=== PATIENT | female | born 1940 | race Caucasian/White ===

== ENCOUNTER 2022-03-26 10:11 | Day surgery (SDC) | payer MEDICARE, SELFPAY ==
[2022-03-26 10:29] VITALS: BMI 24.3
[2022-03-26 10:47] LABS: COVID-19 Test Negative (Negative); IDNOW Serial# 16C4AD1C
[2022-03-26 10:52] VITALS: BP 135/75; PULSE 87; RESP 16; TEMP 36.7; O2SAT 96
--- NOTE | 2022-03-26 12:34 | MHC.SHP ---
Pre-Procedural Eval Section A Date of Service: 03/26/22 The patient is an INPATIENT: No Changes since office visit: No Cold of Flu in the past 2 weeks, No New Medical Problems, No Changes in Medication and No Patient answered all questions The History & Physical has been completed within 30 days and I have reviewed it.: Yes Section B Chief Complaint: Hemorrhage of anus and rectum Allergies: Allergies Allergy/AdvReac Type Severity Reaction Status Date / Time acetaminophen [From Percocet] Allergy Unknown Unverified 03/25/22 10:20 amoxicillin Allergy Unknown Unverified 03/25/22 10:20 gold sodium thiomalate Allergy Unknown Unverified 03/25/22 10:20 latex Allergy Unknown Unverified 03/25/22 10:20 neomycin Allergy Unknown Unverified 03/25/22 10:21 oxycodone [From Percocet] Allergy Unknown Unverified 03/25/22 10:20 Seasonal Allergies Allergy Unknown Unverified 03/25/22 10:20 sulfamethoxazole Allergy Unknown Unverified 03/25/22 10:20 [From Bactrim] trimethoprim [From Bactrim] Allergy Unknown Unverified 03/25/22 10:20 Plan I have reviewed the history and physical and performed a pertinent physical examination on my patient. No changes have occurred unless specified. Time Spent With Patient Time: Total time managing care of this patient today ____ minutes.
--- NOTE | 2022-03-26 12:40 | P.CONAN_ITS ---
HPI - Anesthesia Eval Consult details Narrative: colonoscopy [facility] Past Medical History Medical History (Updated 03/25/22 @ 10:26 by Alberta Garcia RN) Arthritis Basal cell carcinoma Cataract Graves disease History of Mohs micrographic surgery for skin cancer Functional capacity: uses cane/walker Family History Family history of problems with anesthesia: No Surgical History Surgical History (Updated 03/25/22 @ 10:26 by Alberta Garcia RN) History of bladder suspension procedure History of hysterectomy History of Problems with Anesthesia: No Social History Social History Patient Tobacco Use Status: Former Tobacco user Years Smoked: 4 Use of substances other than those prescribed or required for medical reasons: No Are you DNR?: No Advance Directives: No Advance Directives Information Provided: Yes Meds Allergies Allergy/AdvReac Type Severity Reaction Status Date / Time acetaminophen [From Percocet] Allergy Unknown Unverified 03/25/22 10:20 amoxicillin Allergy Unknown Unverified 03/25/22 10:20 gold sodium thiomalate Allergy Unknown Unverified 03/25/22 10:20 latex Allergy Unknown Unverified 03/25/22 10:20 neomycin Allergy Unknown Unverified 03/25/22 10:21 oxycodone [From Percocet] Allergy Unknown Unverified 03/25/22 10:20 Seasonal Allergies Allergy Unknown Unverified 03/25/22 10:20 sulfamethoxazole Allergy Unknown Unverified 03/25/22 10:20 [From Bactrim] trimethoprim [From Bactrim] Allergy Unknown Unverified 03/25/22 10:20 Home Medications Medication Instructions Recorded Confirmed Last Taken Type clotrimazole-betamethasone 1 appl topical BID PRN Wound Healing 03/25/22 Unknown History %-0.05 % topical cream estradiol 0.01% (0.1 mg/gram) 1 g vaginal 2XW 03/25/22 Unknown History vaginal cream levothyroxine 50 mcg tablet 1 tab PO DAILY 03/25/22 Unknown History (Synthroid) piroxicam 20 mg capsule 1 cap PO DAILY 03/25/22 Unknown History Exam Exam Date and Time: March 26, 2022 1240 Height,Weight and Vital Signs: Height 5 ft 4 in Weight 64.41 kg Last Vital Signs Temp 98.1 F 03/26/22 10:52 Pulse 87 03/26/22 10:52 Resp 16 03/26/22 10:52 BP 135/75 03/26/22 10:52 Pulse Ox 96 03/26/22 10:52 O2 Del Method 03/26/22 10:52 Pertinent Lab Results Pertinent Lab Results: Laboratory Tests 03/26/22 10:18 COVID-19 (STIVEN) Negative COVID-19 Clin Com See Note Airway Mallampati Class: I TM Dist: <=3cm Neck ROM: Full Loose/Missing/Broken Teeth: No Heart: ok Lungs: ok Assessment and Plan Assessment Anesthesia Assessment: Anesthesia Plan Discussed and Chart Reviewed Final Anesthetic Review Family History of Problems with Anesthesia: No History of Problems with Anesthesia: No NPO: Yes ASA Class: III Final Preanesthetic Review: No Changes in Pt Med Stat, Meds/Allgs Chart Reviewed, Consent Obtained/Reviewed and Anes Risks/Benef Reviewed Patient Risk: Intermediate Procedure Risk: Low Anesthetic Plan Anesthetic Plan: MAC: and Agree w/ Assess. and Plan Disposition: Standard PACU
--- NOTE | 2022-03-26 13:19 | P.BOP_ITS ---
Brief Operative Note Date of Service: 03/26/22 Pre-op diagnosis: screening Post-op diagnosis: same Procedure: colonoscopy Surgeon: Santana Martínez Anesthesia: MAC Was an Repairer Sh[employer] Sticks used for this Procedure?: No Estimated blood loss (mL): 2 Pathology: other Condition: stable Disposition: PACU
[2022-03-26 13:24] VITALS: BP 97/51; PULSE 85; RESP 20; TEMP 36.5; O2SAT 94
[2022-03-26 13:39] VITALS: BP 116/69; PULSE 72; RESP 18; TEMP 36.5; O2SAT 97
--- NOTE | 2022-03-27 00:26 | OP_ITS ---
SURGEON: Santana Martínez MD INDICATIONS: Rectal bleeding. PREOPERATIVE DIAGNOSIS: POSTOPERATIVE DIAGNOSIS: PROCEDURE PERFORMED: Colonoscopy to the terminal ileum with biopsy and snare polypectomy. ESTIMATED BLOOD LOSS: COMPLICATIONS: ANESTHESIA: Monitored anesthesia care. ASSISTANTS: SPECIMENS: PROCEDURE DESCRIPTION: Date: 03/26/22. A history and physical performed. The risks and benefits of the procedure were explained to the patient. Informed consent was obtained. The patient was placed in the left lateral decubitus position. A digital rectal exam was performed and was found to be normal. The Olympus pediatric video colonoscope was introduced into the rectum and advanced to the cecum without difficulty. The cecum was identified by transillumination, palpation, and identification of ileocecal valve. Examination was performed. The scope was removed. She tolerated the procedure well and returned to recovery area in stable condition. FINDINGS: The terminal ileum was normal. The visualized colonic mucosa was normal. Two polyps were identified and removed with biopsy forceps. These measured less than 5 mm. They were located at 60 cm from the anal verge. A 3rd polyp measuring approximately 8 mm was removed with a hot snare from 20 cm and recovered via suction. There was mild sigmoid diverticulosis. Retroflexed examination showed moderately large internal hemorrhoids. IMPRESSION: Colon polyps. RECOMMENDATION: Follow up the biopsy results. MD SHABBIR Rahman/AUNDREA / [id number] MTDD
== END 2022-03-26 14:01 | disposition home or self-care (01) ==
PROVIDERS: Anesthesiology; PCP Family Medicine; Visit Provider Internal Medicine Gastroenterology
PROC: 0DJD8ZZ Inspection of Lower Intestinal Tract, Via Natural or Artificial Opening Endoscopic (ICD-10-PCS; CPT 45378; principal; 2022-03-26 11:50)
DX: K62.5 Hemorrhage of anus and rectum (principal); Z86.010 Personal history of colon polyps; K63.5 Polyp of colon; K57.30 Diverticulosis of large intestine without perforation or abscess without bleeding; K64.8 Other hemorrhoids; E05.00 Thyrotoxicosis with diffuse goiter without thyrotoxic crisis or storm; M19.90 Unspecified osteoarthritis, unspecified site; Z79.1 Long term (current) use of non-steroidal anti-inflammatories (NSAID); Z79.899 Other long term (current) drug therapy; Z88.1 Allergy status to other antibiotic agents; Z88.2 Allergy status to sulfonamides; Z88.8 Allergy status to other drugs, medicaments and biological substances; Z91.040 Latex allergy status; Z85.828 Personal history of other malignant neoplasm of skin; Z87.891 Personal history of nicotine dependence; Z20.822 Contact with and (suspected) exposure to COVID-19
CPT/HCPCS: 45385; 45380; 87635; 88305